=== PATIENT | male | born 1980 | race Caucasian/White ===

== ENCOUNTER 2023-12-30 10:55 | Emergency (ER) | payer OTHER ==
[2023-12-30 11:28] VITALS: RESP 18; TEMP 97.6
[2023-12-30] MEDS: FAMOTIDINE 20 MG/2 ML VIAL IV STA (12:43)
[2023-12-30] MEDS: methylPREDNISolone SOD SUCCI 125 MG/2 ML VIAL IV STA (12:46)
--- NOTE | 2023-12-30 13:13 | ED ---
Skin/Abscess/FB HPI - General Chief complaint: Animal Bite Stated complaint: Bee Stings Time Seen by Provider: 12/30/23 12:22 Source: patient, RN notes reviewed Mode of arrival: ambulatory Limitations: no limitations - History of Present Illness Initial comments: This is a 43-year-old male who presents to the emergency department for bee stings. Patient states that earlier today he was stung by ground bees approximately 5 times. He was stung in the right hand, right ear, right elbow, and a few other places. He used to be allergic to bees but has not been stung in many years. He originally went to urgent care, however they were concerned about his eye because they noticed that the left eye appeared bloodshot. Patient was unsure if he got stung in the eye or underneath it. States that he may have also hit himself in the eye in the process of trying to swat the bees away. He initially felt like his vision was somewhat blurry, however that has since resolved. He took 50 mg of Benadryl prior to arrival. - Related Data Previous Rx's Medication Instructions Recorded Famotidine [Pepcid] 20 mg PO BID 5 Days #10 tablet 12/30/23 hydrOXYzine HCL [Atarax] 25 mg PO QID PRN #20 tab 12/30/23 predniSONE 50 mg PO DAILY 5 Days #5 tab 12/30/23 Allergies Allergy/AdvReac Type Severity Reaction Status Date / Time No Known Allergies Allergy Verified 12/30/23 11:28 Review of Systems ROS Statement: Those systems with pertinent positive or pertinent negative responses have been documented in the HPI. ROS Other: All systems not noted in ROS Statement are negative. Past Medical History Past Medical History: Myocardial Infarction ([place]) Past Surgical History: Tonsillectomy Past Psychological History: No Psychological Hx Reported Smoking Status: Current every day smoker Past Alcohol Use History: Occasional Past Drug Use History: None Reported General Exam Limitations: no limitations General appearance: alert, in no apparent distress Head exam: Present: atraumatic, normocephalic, normal inspection Eye exam: Present: PERRL, EOMI, other (The left eye appears to have a mild area of a subconjunctival hemorrhage. There is also an area of left periorbital swelling and tenderness.) Respiratory exam: Present: normal lung sounds bilaterally. Absent: respiratory distress, wheezes, rales, rhonchi, stridor Cardiovascular Exam: Present: regular rate, normal rhythm, normal heart sounds. Absent: systolic murmur, diastolic murmur, rubs, gallop, clicks Extremities exam: Present: other (Swelling and urticaria to the left hand and right arm) Neurological exam: Present: alert, oriented X3, CN II-XII intact Psychiatric exam: Present: normal affect, normal mood Course Vital Signs 12/30/23 12/30/23 11:24 13:56 Temperature 97.6 F 97.6 F Pulse Rate 110 H 77 Respiratory 18 18 Rate Blood Pressure 122/86 111/75 O2 Sat by Pulse 97 98 Oximetry Medical Decision Making - Medical Decision Making This is a 43 year old male who presents to the emergency department for bee stings. Was pt. sent in by a medical professional or institution? @ -Urgent care Did you speak to anyone other than the patient for history? @ -No Did you review nursing and triage notes? @ -Yes, and I agree, it is accurate with regards to the patient's symptoms. Were old charts reviewed? @ -No Differential Diagnosis? @ -Differential Urticaria: Bee/insect sting, poison dewayne, contact dermatitis, this is not meant to be an all-inclusive list. EKG interpreted by me (3pts min.)? @ -Not obtained X-rays interpreted by me (1pt min.)? @ -Not obtained CT interpreted by me (1pt min.)? @ -Not obtained U/S interpreted by me (1pt. min.)? @ -Not obtained What testing was considered but not performed? (CT, X-rays, U/S, labs)? Why? @ -None What meds were considered but not given? Why? @ -None Did you discuss the management of the patient with other professionals? @ -No Did you reconcile home meds? @ -No Was smoking cessation discussed for >3mins.? @ -No Was critical care preformed (if so, how long)? @ -No Were there social determinants of health that impacted care today? How? (Homelessness, low income, unemployed, alcoholism, drug addiction, transportation, low edu. Level, literacy, decrease access to med. care, half-way, rehab)? @ -No Was there de-escalation of care discussed even if they declined? (Discuss DNR or withdrawal of care, Hospice)? @ -No What co-morbidities impacted this encounter? (DM, HTN, Smoking, COPD, CAD, Cancer, CVA, Hep., AIDS, mental health diagnosis, sleep apnea, morbid obesity)? @ -None Was patient admitted / discharged? @ -Discharged. Lab work demonstrates urticaria with some areas of a more localized reaction including his left hand and right arm. He was also complaining of some itching over the right ear. Urgent care sent the patient in for a subconjunctival hemorrhage to the left eye. Fluorescein staining performed demonstrating no evidence of a corneal abrasion. This was also examined under magnification and there is no evidence of a stinger or other for eign body. He was given an allergy cocktail consisting of Solu-Medrol and famotidine. Benadryl has been taken just prior to arrival. Triamcinolone cream provided to use as a spot treatment on the most bothersome areas. Prescription for prednisone, famotidine, and Atarax provided with dosing instructions reviewed for additional management. Patient discharged home in stable condition. Case discussed with ED attending Dr. Zhang. Return precautions reviewed in depth, the patient is instructed to return to the emergency department with any new, worsening, or concerning symptoms. Patient verbalized understanding. Undiagnosed new problem with uncertain prognosis? @ -None Drug Therapy requiring intensive monitoring for toxicity (Heparin, Nitro, Insulin, Cardizem)? @ -None Were any procedures done? @ -None Diagnosis/symptom? @ -Urticaria, allergic reaction to bee sting Acute, or Chronic, or Acute on Chronic? @ -Acute Uncomplicated (without systemic symptoms) or Complicated (systemic symptoms)? @ -Uncomplicated Side effects of treatment? @ -None Exacerbation, Progression, or Severe Exacerbation] @ -Not applicable Poses a threat to life or bodily function? @ -No Disposition Clinical Impression: Bee sting, Urticaria Disposition: HOME SELF-CARE Instructions (If sedation given, give patient instructions): Insect Bite or Sting (ED) Additional Instructions: Return to the emergency department with any new, worsening, or concerning symptoms. Take the prednisone daily for 5 days. Take the famotidine twice daily for 5 days. You can take the Atarax 4 times daily or another antihistamine such as Benadryl to further help with your symptoms. Apply the triamcinolone cream provided to the affected areas to help with your itching and discomfort. Do not apply this to the face. Follow up with your primary care provider in 1-2 days. Prescriptions: hydrOXYzine HCL [Atarax] 25 mg PO QID PRN #20 tab PRN Reason: Itching Famotidine [Pepcid] 20 mg PO BID 5 Days #10 tablet predniSONE 50 mg PO DAILY 5 Days #5 tab Is patient prescribed a controlled substance at d/c from ED?: No Referrals: None,Stated [Primary Care Provider] - 1-2 days Time of Disposition: 13:35
[2023-12-30] MEDS: FLUORESCEIN STRIPS 1 MG STRIP LEFT EYE ONE (13:24)
[2023-12-30] MEDS: PROPARACAINE 0.5% OPHTH DROPS 15 ML BTL LEFT EYE STA (13:24)
[2023-12-30] MEDS: TRIAMCINOLONE 0.1% CREAM 80 GM TUBE TOPICAL STA (13:54)
[2023-12-30 13:58] VITALS: BP 111/75; PULSE 77
== END 2023-12-30 13:59 | disposition home or self-care (01) ==
LOC: EC 10:55
DX: T63.441A Toxic effect of venom of bees, accidental (unintentional), initial encounter (principal); L50.0 Allergic urticaria; F17.200 Nicotine dependence, unspecified, uncomplicated
CPT/HCPCS: 99283; 96374; 96375; J3490; J2919